=== PATIENT | male | born 1935 | race Caucasian/White ===

== ENCOUNTER → 2016-11-22 | Outpatient (CLI) | payer MEDICARE, OTHER ==
[2016-11-22 13:30] LABS: BUN/CREATININE RATIO 14 (0-10)
== END ==
LOC: LAB 11:47
PROVIDERS: Urology
DX: C61 Malignant neoplasm of prostate (principal)
CPT/HCPCS: 36415; 74000; 80053; 84153

== ENCOUNTER 2020-08-01 10:08 | Emergency (ER) | payer MEDICARE, OTHER ==
[~2020-08-01 10:08] MED LIST: ASPIRIN CHEWABL81 MG PO; BRILINTA 90 MG90 MG PO; CARAFATE1 GM PO; DESYREL 50 MG T50 MG PO; HYDROCHLOROTH12.5 MG PO; HYDROXYZINE HCL50 MG PO; IMDUR ER TAB 6060 MG PO; NEURONTIN 100100 MG PO; NORCO 5-325 TA1 EACH PO; PROTONIX 40 MG40 M1 PO; RANITIDINE HCL300 M1 PO; RANITIDINE HCL300 MG PO; TENORMIN 25 MG25 MG PO; TRAZODONE HCL50 MG PO
[2020-08-01 12:11] LABS: HEMOGLOBIN 12.8 gm/dl (14.0-17.5); RED BLOOD COUNT 4.63 M/UL (4.20-5.50); WHITE BLOOD COUNT 6.7 K/UL (4.5-11.0)
[2020-08-01 12:38] LABS: BUN/CREATININE RATIO 21 (0-10)
[2020-08-01] MEDS ORDERED: DECADRON6 MG PO (15:23)
== END 2020-08-01 17:10 | disposition home or self-care (01) ==
LOC: ER1 10:08
PROVIDERS: Physician Assistant
DX: U07.1 COVID-19 (principal); I11.0 Hypertensive heart disease with heart failure; I50.9 Heart failure, unspecified; I25.10 Atherosclerotic heart disease of native coronary artery without angina pectoris; Z95.5 Presence of coronary angioplasty implant and graft
CPT/HCPCS: 71045; 80053; 82550; 82553; 83874; 83880; 84484; 85025; 93005; 99285; M0239; U0002

== ENCOUNTER → 2021-05-08 | Outpatient (CLI) | payer MEDICARE, OTHER ==
[~2021-05-08] MED LIST changes: +DECADRON6 MG PO
== END ==
LOC: HEART 5 09:08
DX: R06.02 Shortness of breath (principal); I34.0 Nonrheumatic mitral (valve) insufficiency
CPT/HCPCS: 93306